=== PATIENT | female | born 1980 | race Caucasian/White ===

== ENCOUNTER 2022-02-23 20:27 | Emergency (ER) | payer MEDICARE, OTHER ==
[~2022-02-23] VITALS: Ht 170.2 cm; Wt 65.8 kg
--- NOTE | 2022-02-23 20:30 | NUR ---
patient came to ER with thoughts of suicide since this morning. patient plans to cut her wrist
[2022-02-23] MEDS ORDERED: SERT25TA PO (20:57)
[2022-02-23] MEDS ORDERED: RISP3TAB5 PO (20:57)
--- NOTE | 2022-02-23 21:15 | NUR ---
gave patient food and water
[2022-02-23 21:33] LABS: MEAN CORPUSCULAR VOLUME 87.7 fL (75.5-95.3); PLATELET COUNT (AUTO) 317 K/uL (179-408)
[2022-02-23 21:44] LABS: ETHANOL < 3 MG/DL (0-0)
[2022-02-23 21:47] LABS: CARBON DIOXIDE 26 mmol/L (21-32); CHLORIDE 105 mmol/L (98-107); CREATININE 0.8 mg/dL (0.6-1.3); GLUCOSE 102 mg/dL (74-106); POTASSIUM 4.4 mmol/L (3.5-5.1); UREA NITROGEN, BLOOD 8 mg/dL (7-18)
[2022-02-23 21:53] LABS: ACETAMINOPHEN 7.3 ug/mL (10-30); ALANINE AMINOTRANSFERASE 29 U/L (14-59); ALKALINE PHOSPHATASE 82 U/L (50-136); ASPARTATE AMINOTRANSFERASE 16 U/L (15-37); BILIRUBIN,DIRECT 0.1 mg/dL (0.0-0.2); BILIRUBIN,TOTAL 0.3 mg/dL (0.2-1.0); TOTAL PROTEIN, SERUM 6.6 g/dL (6.4-8.2)
[2022-02-23 21:57] LABS: THYROID STIMULATING HORMONE 1.042 mIU/mL (0.358-3.740)
[2022-02-23] MEDS ORDERED: HALOPERIDOL LACTATE 5 MG/1 ML VIAL ONE (22:05)
[2022-02-23] MEDS ORDERED: HALOPERIDOL LACTATE 5 MG/1 ML VIAL IM ONE (22:15)
--- NOTE | 2022-02-23 22:20 | NUR ---
called crisis team for patient psych evaluation. Art is notified and on his way
[2022-02-23 22:28] LABS: *BILIRUBIN,URIN NEGATIVE (NEGATIVE); *BLOOD, URINE NEGATIVE (NEGATIVE); *CLARITY,URINE CLEAR (CLEAR); *COLOR,URINE YELLOW (YELLOW); *KETONES,URINE NEGATIVE (NEGATIVE); *UROBILINOGEN,URINE 0.2 E.U./dl (NORMAL); LEUKOCYTE ESTERASE ,URINE NEGATIVE (NEGATIVE); NITRITE, URINE NEGATIVE (NEGATIVE); PH,URINE 8.5 (5.0-8.0); UGLUCOSE NEGATIVE (NEGATIVE)
[2022-02-23 22:33] LABS: *AMPHETAMINE, URINE NEGATIVE (NEGATIVE); *CANNABINOID, URINE NEGATIVE (NEGATIVE); *COCCAINE, URINE NEGATIVE (NEGATIVE); *OPIATE, URINE NEGATIVE (NEGATIVE); *PHENCYCLIDINE SCREEN,URINE NEGATIVE (NEGATIVE)
[2022-02-23 23:08] LABS: BACTERIA,URINE FEW /HPF (NONE SEEN); RBC,URINE 0-3 /HPF (0-3); SQUAMOUS EPITHELIAL CELL,UR MODERATE /HPF (NONE SEEN); WBC,URINE 0-3 /HPF (0-3)
--- NOTE | 2022-02-24 00:20 | NUR ---
Called [facility] [phone] and spoke with Miguel who request clinical and facesheet to be faxed to .
--- NOTE | 2022-02-24 01:59 | NUR ---
Note teresaartis in EDM - 02/24/22 at 0201 by [id number] Miguel from [facility] called back with transfer info. Patient will be going to [facility]. Accepting psych MD is DR Vergara and Medical MD is Dr Connelly. Call for report is [phone]
--- NOTE | 2022-02-24 02:02 | NUR ---
Miguel from [facility] called back with transfer info. Patient will be going to [facility]. Accepting psych MD is DR Vergara and Medical MD is Dr Connelly. Call for report is .
--- NOTE | 2022-02-24 02:15 | NUR ---
report given to [facility]
--- NOTE | 2022-02-24 02:25 | NUR ---
Called [facility] ambulance to transfer patient to [facility]. ETA is [phone].
--- NOTE | 2022-02-24 03:20 | NUR ---
Patient Tranfers to outside Facility Physician: Dr Vergara Location: [facility]
== END 2022-02-24 03:20 ==
LOC: ER 20:30
DX: F23 Brief psychotic disorder (principal); R45.851 Suicidal ideations; Z20.822 Contact with and (suspected) exposure to COVID-19; F17.210 Nicotine dependence, cigarettes, uncomplicated; Z79.899 Other long term (current) drug therapy; Z86.59 Personal history of other mental and behavioral disorders
CPT/HCPCS: 36415; 84443; 85025; A4663; G0480; J1630